=== PATIENT | female | born 1965 | race Asian ===

== ENCOUNTER 2020-09-06 04:00 | Inpatient (IN) | payer MEDICARE, MEDICAID ==
[~2020-09-06] VITALS: Ht 149.9 cm; Wt 55.3 kg
[~2020-09-06 04:00] MED LIST: AMLO-257 PO; AMYL1CAP63 PO; ATOR40TA28 PO; BENZ-70 PO; BUPR-93 PO; CARV6 PO; DIVA250T4 PO; DULO20CA27 PO
[2020-09-06 05:54] VITALS: BP 142/75
[2020-09-06] MEDS: LORazepam 2 MG TABLET PO PRN (07:00)
[2020-09-06 07:11] LABS: GLUCOMETER DEV NAME(LOC) BV2S.; GLUCOSE,POINT OF CARE 108 MG/DL (70-110)
[2020-09-06] MEDS ORDERED: BENZONATATE 100 MG CAPSULE PO PRN (08:00)
[2020-09-06] MEDS ORDERED: TraZODone HCL 100 MG TABLET PO PRN (08:00)
[2020-09-06 08:05] VITALS: BP 158/80
[2020-09-06] MEDS ORDERED: LamoTRIgine 100 MG TABLET PO SCH (09:00)
[2020-09-06] MEDS ORDERED: PNEUMOCOCCAL VACCINE POLYVALENT 0.5 ML VIAL [PPSV23] IM. ONE (09:15)
[2020-09-06] MEDS: AmLODIPine BESYLATE 5 MG TABLET PO SCH (09:26)
[2020-09-06] MEDS: OMEPRAZOLE 20 MG CAPSULE PO SCH (09:26)
[2020-09-06] MEDS: CARVEDILOL 12.5 MG TABLET PO SCH ×2 (09:26→18:27)
[2020-09-06] MEDS: FAMOTIDINE 20 MG TABLET PO SCH ×2 (09:26→18:27)
[2020-09-06] MEDS: LOSARTAN POTASSIUM 50 MG TABLET PO SCH (11:42)
[2020-09-06] MEDS: EZETIMIBE 10 MG TABLET PO SCH (11:46)
[2020-09-06] MEDS ORDERED: CloNIDine HCL 0.1 MG TABLET PO PRN (13:00)
[2020-09-06] MEDS ORDERED: LOPERAMIDE HCL 2 MG CAPSULE PO PRN (13:00)
[2020-09-06] MEDS ORDERED: MAG HYDROX/AL HYDROX/SIMETH ES 30 ML SUSPENSION UDCUP PO PRN (13:00)
[2020-09-06] MEDS ORDERED: GuaiFENesin/D-METHORPHAN [SUGAR-FREE] 200-20MG/10 ML SYRUP UDCUP PO PRN (13:00)
[2020-09-06] MEDS ORDERED: DOCUSATE SODIUM 100 MG CAPSULE PO PRN (13:00)
[2020-09-06] MEDS ORDERED: ALBUTEROL SULFATE HFA 90 MCG/PUFF 8 GM INHALER IH PRN (13:00)
[2020-09-06] MEDS ORDERED: NICOTINE 14 MG/24 HOUR PATCH TD PRN (13:00)
[2020-09-06] MEDS ORDERED: MAGNESIUM HYDROXIDE SUSPENSION 30 ML UDCUP PO PRN (13:00)
[2020-09-06] MEDS ORDERED: PETROLATUM,WHITE 28 GM JELLY TP PRN (13:00)
[2020-09-06] MEDS ORDERED: IBUPROFEN 400 MG TABLET PO PRN (13:00)
[2020-09-06 16:06] VITALS: BP 135/71
[2020-09-06 17:01] LABS: GLUCOMETER DEV NAME(LOC) BV2S.; GLUCOSE,POINT OF CARE 159 MG/DL (70-110)
[2020-09-06 17:01] LABS: GLUCOMETER DEV NAME(LOC) BV2S.; GLUCOSE,POINT OF CARE 226 MG/DL (70-110)
[2020-09-06] MEDS: DIVALPROEX SODIUM 250 MG DR TABLET PO SCH (18:27)
[2020-09-06] MEDS: ZOLPIDEM TARTRATE 10 MG TABLET PO PRN (20:50)
[2020-09-06] MEDS: LURASIDONE HCL 60 MG TABLET PO SCH (20:50)
[2020-09-06] MEDS: ATORVASTATIN CALCIUM 40 MG TABLET PO SCH (20:58)
[2020-09-06] MEDS ORDERED: LURASIDONE HCL 60 MG TABLET PO SCH (21:00)
[2020-09-06] MEDS ORDERED: GLUCAGON,HUMAN RECOMBINANT 1 MG VIAL IM PRN (21:45)
[2020-09-07 04:47] VITALS: BP 108/61
[2020-09-07 06:27] LABS: GLUCOMETER DEV NAME(LOC) BV2S.; GLUCOSE,POINT OF CARE 100 MG/DL (70-110)
[2020-09-07 08:06] LABS: BASOPHILS % (AUTO) 0.4 % (0.0-2.0); EOSINOPHILS % (AUTO) 1.9 % (1.0-6.0); HEMATOCRIT 36.8 % (36-46); HEMOGLOBIN 12.5 g/dL (12.0-16.0); LYMPHOCYTES # (AUTO) 2.4 K/uL (1.0-4.8); LYMPHOCYTES % (AUTO) 43.9 % (22.0-44.0); MEAN CORPUSCULAR HEMOGLOBIN 31.1 pg (26.0-34.0); MEAN CORPUSCULAR VOLUME 92 fL (80-100); MONOCYTES # (AUTO) 0.4 K/uL (0.1-1.0); MONOCYTES % (AUTO) 7.4 % (2.0-9.0); NEUTROPHILS # (AUTO) 2.5 K/uL (1.8-7.7); NEUTROPHILS % (AUTO) 46.4 % (40.0-70.0); PLATELET COUNT (AUTO) 247 K/uL (150-450); RED BLOOD CELL COUNT(AUTO) 4.03 MIL/uL (4.00-5.20); RED CELL DISTRIBUTION WIDTH 12.7 % (11.5-14.5)
[2020-09-07] MEDS: BuPROPion HCL XL 150 MG ER TABLET PO SCH (08:11)
[2020-09-07] MEDS: OMEPRAZOLE 20 MG CAPSULE PO SCH (08:11)
[2020-09-07] MEDS: LamoTRIgine 100 MG TABLET PO SCH (08:11)
[2020-09-07] MEDS: DIVALPROEX SODIUM 250 MG DR TABLET PO SCH (08:11)
[2020-09-07] MEDS: FAMOTIDINE 20 MG TABLET PO SCH ×2 (08:11→16:32)
[2020-09-07] MEDS: AmLODIPine BESYLATE 5 MG TABLET PO SCH (08:11)
[2020-09-07] MEDS: CARVEDILOL 12.5 MG TABLET PO SCH ×2 (08:11→16:32)
[2020-09-07 08:15] VITALS: BP 142/71
[2020-09-07] MEDS: DULoxetine HCL 20 MG CAPSULE PO SCH (08:21)
[2020-09-07] MEDS: EZETIMIBE 10 MG TABLET PO SCH (08:32)
[2020-09-07] MEDS: LOSARTAN POTASSIUM 50 MG TABLET PO SCH (08:32)
[2020-09-07] MEDS: LORazepam 2 MG TABLET PO PRN (08:32)
[2020-09-07 08:56] LABS: ALBUMIN 3.6 g/dL (3.4-5.0); BILIRUBIN,TOTAL 0.4 mg/dL (0.1-1.0); CALCIUM, TOTAL 9.3 mg/dL (8.8-10.5); CHOL/HDL RATIO 2.2 (3.9-5.7); CREATININE 1.98 mg/dL (0.60-1.30); FREE T4 (FREE THYROXINE) 0.94 ng/dL (0.76-1.46); POTASSIUM 4.1 mmol/L (3.5-5.1); THYROID STIMULATING HORMONE 0.7 uIU/mL (0.36-3.74); TOTAL PROTEIN, SERUM 7.6 g/dL (6.4-8.2)
[2020-09-07 11:52] LABS: GLUCOMETER DEV NAME(LOC) BV2S.; GLUCOSE,POINT OF CARE 134 MG/DL (70-110)
[2020-09-07 16:02] VITALS: BP 126/67
[2020-09-07] MEDS: DIVALPROEX SODIUM 500 MG DR TABLET PO SCH (16:32)
[2020-09-07] MEDS: INSULIN LISPRO 100 UNITS/ML SQ PRN ×2 (16:40→20:15)
[2020-09-07 16:43] LABS: GLUCOMETER DEV NAME(LOC) BV2S.; GLUCOSE,POINT OF CARE 208 MG/DL (70-110)
[2020-09-07] MEDS: ATORVASTATIN CALCIUM 40 MG TABLET PO SCH (20:12)
[2020-09-07] MEDS: LURASIDONE HCL 60 MG TABLET PO SCH (20:12)
[2020-09-07] MEDS: AMYLASE/LIPASE/PROTEASE 60/12/38 MU DR CAPSULE PO SCH (20:16)
[2020-09-07] MEDS: ZOLPIDEM TARTRATE 10 MG TABLET PO PRN (20:49)
[2020-09-07 21:02] LABS: GLUCOMETER DEV NAME(LOC) BV2S.; GLUCOSE,POINT OF CARE 181 MG/DL (70-110)
[2020-09-08 05:02] VITALS: BP 113/60
[2020-09-08] MEDS: AMYLASE/LIPASE/PROTEASE 60/12/38 MU DR CAPSULE PO SCH ×3 (06:41→16:14)
[2020-09-08 06:50] LABS: GLUCOMETER DEV NAME(LOC) BV2S.; GLUCOSE,POINT OF CARE 122 MG/DL (70-110)
[2020-09-08 08:00] VITALS: BP 131/65
[2020-09-08] MEDS: LamoTRIgine 100 MG TABLET PO SCH (08:41)
[2020-09-08] MEDS: DIVALPROEX SODIUM 500 MG DR TABLET PO SCH ×2 (08:41→16:13)
[2020-09-08] MEDS: EZETIMIBE 10 MG TABLET PO SCH (08:41)
[2020-09-08] MEDS: BuPROPion HCL XL 150 MG ER TABLET PO SCH (08:41)
[2020-09-08] MEDS: CARVEDILOL 12.5 MG TABLET PO SCH ×2 (08:41→16:13)
[2020-09-08] MEDS: LOSARTAN POTASSIUM 50 MG TABLET PO SCH (08:41)
[2020-09-08] MEDS: OMEPRAZOLE 20 MG CAPSULE PO SCH (08:41)
[2020-09-08] MEDS: AmLODIPine BESYLATE 5 MG TABLET PO SCH (08:42)
[2020-09-08] MEDS: FAMOTIDINE 20 MG TABLET PO SCH ×2 (08:42→16:13)
[2020-09-08] MEDS: DULoxetine HCL 20 MG CAPSULE PO SCH ×2 (08:43→12:15)
[2020-09-08] MEDS: LORazepam 2 MG TABLET PO PRN ×2 (08:52→16:25)
[2020-09-08] MEDS: INSULIN LISPRO 100 UNITS/ML SQ PRN ×2 (11:01→17:00)
[2020-09-08 12:53] LABS: GLUCOMETER DEV NAME(LOC) BV2S.; GLUCOSE,POINT OF CARE 159 MG/DL (70-110)
[2020-09-08 16:09] VITALS: BP 115/60
[2020-09-08 16:36] LABS: GLUCOMETER DEV NAME(LOC) BV2S.; GLUCOSE,POINT OF CARE 205 MG/DL (70-110)
[2020-09-08] MEDS: ACETAMINOPHEN 325 MG TABLET PO PRN (16:43)
[2020-09-08] MEDS: ATORVASTATIN CALCIUM 40 MG TABLET PO SCH (19:55)
[2020-09-08] MEDS: LURASIDONE HCL 60 MG TABLET PO SCH (19:55)
[2020-09-08 20:06] LABS: GLUCOMETER DEV NAME(LOC) BV2S.; GLUCOSE,POINT OF CARE 108 MG/DL (70-110)
[2020-09-08] MEDS: ZOLPIDEM TARTRATE 10 MG TABLET PO PRN (20:31)
[2020-09-09 05:24] VITALS: BP 138/60
[2020-09-09] MEDS: AMYLASE/LIPASE/PROTEASE 60/12/38 MU DR CAPSULE PO SCH ×3 (06:23→16:05)
[2020-09-09 06:40] LABS: GLUCOMETER DEV NAME(LOC) BV2S.; GLUCOSE,POINT OF CARE 93 MG/DL (70-110)
[2020-09-09 08:00] VITALS: BP 160/75
[2020-09-09] MEDS: DULoxetine HCL 20 MG CAPSULE PO SCH (08:01)
[2020-09-09] MEDS: EZETIMIBE 10 MG TABLET PO SCH (08:01)
[2020-09-09] MEDS: FAMOTIDINE 20 MG TABLET PO SCH ×2 (08:01→16:05)
[2020-09-09] MEDS: CARVEDILOL 12.5 MG TABLET PO SCH ×2 (08:01→16:05)
[2020-09-09] MEDS: OMEPRAZOLE 20 MG CAPSULE PO SCH (08:01)
[2020-09-09] MEDS: DIVALPROEX SODIUM 500 MG DR TABLET PO SCH ×2 (08:01→16:05)
[2020-09-09] MEDS: AmLODIPine BESYLATE 5 MG TABLET PO SCH (08:01)
[2020-09-09] MEDS: BuPROPion HCL XL 150 MG ER TABLET PO SCH (08:01)
[2020-09-09] MEDS: LOSARTAN POTASSIUM 50 MG TABLET PO SCH (08:02)
[2020-09-09] MEDS: LORazepam 2 MG TABLET PO PRN ×2 (08:02→16:05)
[2020-09-09] MEDS: LamoTRIgine 100 MG TABLET PO SCH (08:02)
[2020-09-09 09:21] VITALS: BP 134/64
[2020-09-09] MEDS: INSULIN LISPRO 100 UNITS/ML SQ PRN ×3 (10:57→20:09)
[2020-09-09 11:13] LABS: GLUCOMETER DEV NAME(LOC) BV2S.; GLUCOSE,POINT OF CARE 199 MG/DL (70-110)
[2020-09-09 16:08] VITALS: BP 149/83
[2020-09-09 16:24] LABS: GLUCOMETER DEV NAME(LOC) BV2S.; GLUCOSE,POINT OF CARE 143 MG/DL (70-110)
[2020-09-09 16:32] VITALS: BP 142/79
[2020-09-09] MEDS: ATORVASTATIN CALCIUM 40 MG TABLET PO SCH (20:01)
[2020-09-09] MEDS: LURASIDONE HCL 60 MG TABLET PO SCH (20:01)
[2020-09-09] MEDS: ZOLPIDEM TARTRATE 10 MG TABLET PO PRN (20:07)
[2020-09-09 20:58] LABS: GLUCOMETER DEV NAME(LOC) BV2S.; GLUCOSE,POINT OF CARE 146 MG/DL (70-110)
[2020-09-10 04:26] VITALS: BP 123/70
[2020-09-10 06:18] VITALS: BP 138/54
[2020-09-10] MEDS: AMYLASE/LIPASE/PROTEASE 60/12/38 MU DR CAPSULE PO SCH ×3 (06:30→16:20)
[2020-09-10 06:41] LABS: GLUCOMETER DEV NAME(LOC) BV2S.; GLUCOSE,POINT OF CARE 85 MG/DL (70-110)
[2020-09-10 08:12] VITALS: BP 144/66
[2020-09-10] MEDS: LORazepam 2 MG TABLET PO PRN ×2 (08:12→12:13)
[2020-09-10] MEDS: AmLODIPine BESYLATE 5 MG TABLET PO SCH (08:13)
[2020-09-10] MEDS: DULoxetine HCL 20 MG CAPSULE PO SCH (08:13)
[2020-09-10] MEDS: FAMOTIDINE 20 MG TABLET PO SCH ×2 (08:13→16:20)
[2020-09-10] MEDS: LamoTRIgine 100 MG TABLET PO SCH (08:13)
[2020-09-10] MEDS: OMEPRAZOLE 20 MG CAPSULE PO SCH (08:13)
[2020-09-10] MEDS: CARVEDILOL 12.5 MG TABLET PO SCH ×2 (08:13→16:19)
[2020-09-10] MEDS: DIVALPROEX SODIUM 500 MG DR TABLET PO SCH ×2 (08:13→16:19)
[2020-09-10] MEDS: BuPROPion HCL XL 150 MG ER TABLET PO SCH (08:13)
[2020-09-10] MEDS: EZETIMIBE 10 MG TABLET PO SCH (08:17)
[2020-09-10] MEDS: LOSARTAN POTASSIUM 50 MG TABLET PO SCH (08:17)
[2020-09-10] MEDS: INSULIN LISPRO 100 UNITS/ML SQ PRN ×2 (11:51→17:02)
[2020-09-10 11:52] LABS: GLUCOMETER DEV NAME(LOC) BV2S.; GLUCOSE,POINT OF CARE 158 MG/DL (70-110)
[2020-09-10 16:03] VITALS: BP 147/72
[2020-09-10 16:37] LABS: GLUCOMETER DEV NAME(LOC) BV2S.; GLUCOSE,POINT OF CARE 175 MG/DL (70-110)
[2020-09-10] MEDS: ATORVASTATIN CALCIUM 40 MG TABLET PO SCH (20:04)
[2020-09-10] MEDS: LURASIDONE HCL 60 MG TABLET PO SCH (20:04)
[2020-09-10 20:18] LABS: GLUCOMETER DEV NAME(LOC) BV2S.; GLUCOSE,POINT OF CARE 167 MG/DL (70-110)
[2020-09-10] MEDS: ZOLPIDEM TARTRATE 10 MG TABLET PO PRN (21:01)
[2020-09-11 06:20] VITALS: BP 126/68
[2020-09-11] MEDS: AMYLASE/LIPASE/PROTEASE 60/12/38 MU DR CAPSULE PO SCH ×3 (06:32→16:06)
[2020-09-11 06:36] LABS: GLUCOMETER DEV NAME(LOC) BV2S.; GLUCOSE,POINT OF CARE 90 MG/DL (70-110)
[2020-09-11 07:36] LABS: COVID AG,FIA SOURCE NASOPHARYNGEAL
[2020-09-11 08:36] VITALS: BP 121/72
[2020-09-11] MEDS: OMEPRAZOLE 20 MG CAPSULE PO SCH (09:03)
[2020-09-11] MEDS: BuPROPion HCL XL 150 MG ER TABLET PO SCH (09:03)
[2020-09-11] MEDS: EZETIMIBE 10 MG TABLET PO SCH (09:03)
[2020-09-11] MEDS: DIVALPROEX SODIUM 500 MG DR TABLET PO SCH ×2 (09:03→16:06)
[2020-09-11] MEDS: LOSARTAN POTASSIUM 50 MG TABLET PO SCH (09:03)
[2020-09-11] MEDS: LamoTRIgine 100 MG TABLET PO SCH (09:03)
[2020-09-11] MEDS: DULoxetine HCL 20 MG CAPSULE PO SCH (09:04)
[2020-09-11] MEDS: FAMOTIDINE 20 MG TABLET PO SCH ×2 (09:04→16:06)
[2020-09-11] MEDS: AmLODIPine BESYLATE 5 MG TABLET PO SCH (09:04)
[2020-09-11] MEDS: CARVEDILOL 12.5 MG TABLET PO SCH ×2 (09:05→16:06)
[2020-09-11] MEDS: LORazepam 2 MG TABLET PO PRN (09:07)
[2020-09-11] MEDS: INSULIN LISPRO 100 UNITS/ML SQ PRN ×2 (11:36→20:16)
[2020-09-11 11:42] LABS: GLUCOMETER DEV NAME(LOC) BV2S.; GLUCOSE,POINT OF CARE 222 MG/DL (70-110)
[2020-09-11 16:11] VITALS: BP 140/69
[2020-09-11 16:27] LABS: GLUCOMETER DEV NAME(LOC) BV2S.; GLUCOSE,POINT OF CARE 112 MG/DL (70-110)
[2020-09-11] MEDS: ACETAMINOPHEN 325 MG TABLET PO PRN (20:02)
[2020-09-11] MEDS: ATORVASTATIN CALCIUM 40 MG TABLET PO SCH (20:02)
[2020-09-11] MEDS: LURASIDONE HCL 60 MG TABLET PO SCH (20:02)
[2020-09-11] MEDS: ZOLPIDEM TARTRATE 10 MG TABLET PO PRN (20:02)
[2020-09-11 20:18] LABS: GLUCOMETER DEV NAME(LOC) BV2S.; GLUCOSE,POINT OF CARE 225 MG/DL (70-110)
[2020-09-12 00:48] VITALS: BP 132/70
[2020-09-12] MEDS: AMYLASE/LIPASE/PROTEASE 60/12/38 MU DR CAPSULE PO SCH ×3 (06:46→16:17)
[2020-09-12 06:53] LABS: GLUCOMETER DEV NAME(LOC) BV2S.; GLUCOSE,POINT OF CARE 109 MG/DL (70-110)
[2020-09-12 08:37] VITALS: BP 114/68
[2020-09-12] MEDS: FAMOTIDINE 20 MG TABLET PO SCH ×2 (09:35→16:18)
[2020-09-12] MEDS: DULoxetine HCL 20 MG CAPSULE PO SCH (09:35)
[2020-09-12] MEDS: LamoTRIgine 100 MG TABLET PO SCH (09:36)
[2020-09-12] MEDS: CARVEDILOL 12.5 MG TABLET PO SCH ×2 (09:36→16:18)
[2020-09-12] MEDS: BuPROPion HCL XL 150 MG ER TABLET PO SCH (09:36)
[2020-09-12] MEDS: AmLODIPine BESYLATE 5 MG TABLET PO SCH (09:36)
[2020-09-12] MEDS: LOSARTAN POTASSIUM 50 MG TABLET PO SCH (09:36)
[2020-09-12] MEDS: EZETIMIBE 10 MG TABLET PO SCH (09:36)
[2020-09-12] MEDS: DIVALPROEX SODIUM 500 MG DR TABLET PO SCH ×2 (09:36→16:17)
[2020-09-12] MEDS: OMEPRAZOLE 20 MG CAPSULE PO SCH (09:36)
[2020-09-12 11:56] LABS: GLUCOMETER DEV NAME(LOC) BV2S.; GLUCOSE,POINT OF CARE 183 MG/DL (70-110)
[2020-09-12] MEDS: INSULIN LISPRO 100 UNITS/ML SQ PRN ×3 (11:59→21:19)
[2020-09-12 16:07] VITALS: BP 137/64
[2020-09-12] MEDS: LORazepam 2 MG TABLET PO PRN (16:20)
[2020-09-12 16:35] LABS: GLUCOMETER DEV NAME(LOC) BV2S.; GLUCOSE,POINT OF CARE 141 MG/DL (70-110)
[2020-09-12] MEDS: ATORVASTATIN CALCIUM 40 MG TABLET PO SCH (19:56)
[2020-09-12] MEDS: LURASIDONE HCL 60 MG TABLET PO SCH (19:56)
[2020-09-12 20:05] LABS: GLUCOMETER DEV NAME(LOC) BV2S.; GLUCOSE,POINT OF CARE 175 MG/DL (70-110)
[2020-09-12] MEDS: ZOLPIDEM TARTRATE 10 MG TABLET PO PRN (20:15)
[2020-09-13 00:39] VITALS: BP 119/62
[2020-09-13 06:29] LABS: GLUCOMETER DEV NAME(LOC) BV2S.; GLUCOSE,POINT OF CARE 109 MG/DL (70-110)
[2020-09-13] MEDS: AMYLASE/LIPASE/PROTEASE 60/12/38 MU DR CAPSULE PO SCH ×3 (06:58→17:04)
[2020-09-13] MEDS: BuPROPion HCL XL 150 MG ER TABLET PO SCH (08:02)
[2020-09-13] MEDS: DIVALPROEX SODIUM 500 MG DR TABLET PO SCH ×2 (08:02→15:57)
[2020-09-13] MEDS: OMEPRAZOLE 20 MG CAPSULE PO SCH (08:02)
[2020-09-13] MEDS: FAMOTIDINE 20 MG TABLET PO SCH ×2 (08:03→15:58)
[2020-09-13] MEDS: LamoTRIgine 100 MG TABLET PO SCH (08:04)
[2020-09-13] MEDS: DULoxetine HCL 20 MG CAPSULE PO SCH (08:04)
[2020-09-13] MEDS: EZETIMIBE 10 MG TABLET PO SCH (08:04)
[2020-09-13 08:21] VITALS: BP 134/65
[2020-09-13] MEDS: CARVEDILOL 12.5 MG TABLET PO SCH ×2 (09:00→15:57)
[2020-09-13] MEDS: AmLODIPine BESYLATE 5 MG TABLET PO SCH (09:00)
[2020-09-13] MEDS: LOSARTAN POTASSIUM 50 MG TABLET PO SCH (09:00)
[2020-09-13 11:58] LABS: GLUCOMETER DEV NAME(LOC) BV2S.; GLUCOSE,POINT OF CARE 174 MG/DL (70-110)
[2020-09-13] MEDS: INSULIN LISPRO 100 UNITS/ML SQ PRN ×3 (12:05→21:55)
[2020-09-13] MEDS: LORazepam 2 MG TABLET PO PRN (15:51)
[2020-09-13] MEDS: ACETAMINOPHEN 325 MG TABLET PO PRN (15:52)
[2020-09-13 16:11] VITALS: BP 143/86
[2020-09-13 16:21] LABS: GLUCOMETER DEV NAME(LOC) BV2S.; GLUCOSE,POINT OF CARE 164 MG/DL (70-110)
[2020-09-13] MEDS: LURASIDONE HCL 60 MG TABLET PO SCH (20:03)
[2020-09-13] MEDS: ZOLPIDEM TARTRATE 10 MG TABLET PO PRN (20:03)
[2020-09-13] MEDS: ATORVASTATIN CALCIUM 40 MG TABLET PO SCH (20:03)
[2020-09-13 20:13] LABS: GLUCOMETER DEV NAME(LOC) BV2S.; GLUCOSE,POINT OF CARE 159 MG/DL (70-110)
[2020-09-14 05:40] VITALS: BP 128/68
[2020-09-14 06:28] LABS: GLUCOMETER DEV NAME(LOC) BV2S.; GLUCOSE,POINT OF CARE 94 MG/DL (70-110)
[2020-09-14] MEDS: AMYLASE/LIPASE/PROTEASE 60/12/38 MU DR CAPSULE PO SCH ×3 (06:47→16:12)
[2020-09-14] MEDS: EZETIMIBE 10 MG TABLET PO SCH (08:41)
[2020-09-14] MEDS: AmLODIPine BESYLATE 5 MG TABLET PO SCH (08:41)
[2020-09-14] MEDS: DULoxetine HCL 20 MG CAPSULE PO SCH (08:41)
[2020-09-14] MEDS: BuPROPion HCL XL 150 MG ER TABLET PO SCH (08:41)
[2020-09-14] MEDS: CARVEDILOL 12.5 MG TABLET PO SCH ×2 (08:41→16:12)
[2020-09-14] MEDS: OMEPRAZOLE 20 MG CAPSULE PO SCH (08:41)
[2020-09-14] MEDS: LOSARTAN POTASSIUM 50 MG TABLET PO SCH (08:41)
[2020-09-14] MEDS: FAMOTIDINE 20 MG TABLET PO SCH ×2 (08:42→16:12)
[2020-09-14] MEDS: DIVALPROEX SODIUM 500 MG DR TABLET PO SCH ×2 (08:42→16:12)
[2020-09-14] MEDS: LamoTRIgine 100 MG TABLET PO SCH (08:42)
[2020-09-14 08:58] VITALS: BP 129/76
[2020-09-14] MEDS: LORazepam 2 MG TABLET PO PRN ×2 (11:00→17:56)
[2020-09-14 11:08] LABS: GLUCOMETER DEV NAME(LOC) BV2S.; GLUCOSE,POINT OF CARE 167 MG/DL (70-110)
[2020-09-14] MEDS: INSULIN LISPRO 100 UNITS/ML SQ PRN ×2 (11:47→17:00)
[2020-09-14 16:02] VITALS: BP 133/69
[2020-09-14] MEDS: ACETAMINOPHEN 325 MG TABLET PO PRN (16:20)
[2020-09-14 16:29] LABS: GLUCOMETER DEV NAME(LOC) BV2S.; GLUCOSE,POINT OF CARE 218 MG/DL (70-110)
[2020-09-14] MEDS: ZOLPIDEM TARTRATE 10 MG TABLET PO PRN (20:10)
[2020-09-14 20:15] LABS: GLUCOMETER DEV NAME(LOC) BV2S.; GLUCOSE,POINT OF CARE 96 MG/DL (70-110)
[2020-09-14] MEDS: ATORVASTATIN CALCIUM 40 MG TABLET PO SCH (21:15)
[2020-09-14] MEDS: LURASIDONE HCL 60 MG TABLET PO SCH (21:15)
[2020-09-15 05:49] VITALS: BP 123/64
[2020-09-15 06:30] LABS: GLUCOMETER DEV NAME(LOC) BV2S.; GLUCOSE,POINT OF CARE 97 MG/DL (70-110)
[2020-09-15] MEDS: AMYLASE/LIPASE/PROTEASE 60/12/38 MU DR CAPSULE PO SCH ×3 (06:46→16:24)
[2020-09-15 07:56] LABS: COVID AG,FIA SOURCE NASOPHARYNGEAL
[2020-09-15 08:44] VITALS: BP 114/84
[2020-09-15] MEDS: OMEPRAZOLE 20 MG CAPSULE PO SCH (08:48)
[2020-09-15] MEDS: DIVALPROEX SODIUM 500 MG DR TABLET PO SCH ×2 (08:49→16:24)
[2020-09-15] MEDS: LamoTRIgine 100 MG TABLET PO SCH (08:49)
[2020-09-15] MEDS: BuPROPion HCL XL 150 MG ER TABLET PO SCH (08:49)
[2020-09-15] MEDS: CARVEDILOL 12.5 MG TABLET PO SCH ×2 (08:50→16:24)
[2020-09-15] MEDS: FAMOTIDINE 20 MG TABLET PO SCH ×2 (08:51→16:24)
[2020-09-15] MEDS: EZETIMIBE 10 MG TABLET PO SCH (08:53)
[2020-09-15] MEDS: LOSARTAN POTASSIUM 50 MG TABLET PO SCH (08:53)
[2020-09-15] MEDS: AmLODIPine BESYLATE 5 MG TABLET PO SCH (08:55)
[2020-09-15] MEDS: DULoxetine HCL 20 MG CAPSULE PO SCH (08:55)
[2020-09-15] MEDS: INSULIN LISPRO 100 UNITS/ML SQ PRN ×3 (11:39→20:40)
[2020-09-15 11:46] LABS: GLUCOMETER DEV NAME(LOC) BV2S.; GLUCOSE,POINT OF CARE 154 MG/DL (70-110)
[2020-09-15] MEDS: LORazepam 2 MG TABLET PO PRN ×2 (12:59→21:31)
[2020-09-15 16:11] VITALS: BP 141/79
[2020-09-15 16:30] LABS: GLUCOMETER DEV NAME(LOC) BV2S.; GLUCOSE,POINT OF CARE 174 MG/DL (70-110)
[2020-09-15] MEDS: ATORVASTATIN CALCIUM 40 MG TABLET PO SCH (20:02)
[2020-09-15] MEDS: ZOLPIDEM TARTRATE 10 MG TABLET PO PRN (20:02)
[2020-09-15] MEDS: LURASIDONE HCL 60 MG TABLET PO SCH (20:02)
[2020-09-15 20:18] LABS: GLUCOMETER DEV NAME(LOC) BV2S.; GLUCOSE,POINT OF CARE 189 MG/DL (70-110)
[2020-09-16 00:14] VITALS: BP 148/76
[2020-09-16 06:25] LABS: GLUCOMETER DEV NAME(LOC) BV2S.; GLUCOSE,POINT OF CARE 108 MG/DL (70-110)
[2020-09-16] MEDS: AMYLASE/LIPASE/PROTEASE 60/12/38 MU DR CAPSULE PO SCH ×3 (06:47→16:00)
[2020-09-16] MEDS: LamoTRIgine 100 MG TABLET PO SCH (08:41)
[2020-09-16] MEDS: FAMOTIDINE 20 MG TABLET PO SCH ×2 (08:41→16:00)
[2020-09-16] MEDS: AmLODIPine BESYLATE 5 MG TABLET PO SCH (08:42)
[2020-09-16] MEDS: DULoxetine HCL 20 MG CAPSULE PO SCH (08:42)
[2020-09-16] MEDS: EZETIMIBE 10 MG TABLET PO SCH (08:42)
[2020-09-16] MEDS: CARVEDILOL 12.5 MG TABLET PO SCH ×2 (08:42→16:00)
[2020-09-16] MEDS: LOSARTAN POTASSIUM 50 MG TABLET PO SCH (08:42)
[2020-09-16] MEDS: BuPROPion HCL XL 150 MG ER TABLET PO SCH (08:42)
[2020-09-16] MEDS: DIVALPROEX SODIUM 500 MG DR TABLET PO SCH ×2 (08:42→16:00)
[2020-09-16] MEDS: OMEPRAZOLE 20 MG CAPSULE PO SCH (08:42)
[2020-09-16 08:53] VITALS: BP 125/61
[2020-09-16] MEDS: INSULIN LISPRO 100 UNITS/ML SQ PRN ×2 (11:46→20:53)
[2020-09-16] MEDS: LORazepam 2 MG TABLET PO PRN ×2 (16:00→21:25)
[2020-09-16] MEDS: ACETAMINOPHEN 325 MG TABLET PO PRN (16:00)
[2020-09-16 16:11] VITALS: BP 138/77
[2020-09-16 16:11] LABS: GLUCOMETER DEV NAME(LOC) BV2S.; GLUCOSE,POINT OF CARE 150 MG/DL (70-110)
[2020-09-16 16:11] LABS: GLUCOMETER DEV NAME(LOC) BV2S.; GLUCOSE,POINT OF CARE 137 MG/DL (70-110)
[2020-09-16 20:26] LABS: GLUCOMETER DEV NAME(LOC) BV2S.; GLUCOSE,POINT OF CARE 195 MG/DL (70-110)
[2020-09-16] MEDS ORDERED: ZOLPIDEM TARTRATE 10 MG TABLET PO PRN (20:30)
[2020-09-16] MEDS: LURASIDONE HCL 60 MG TABLET PO SCH (20:33)
[2020-09-16] MEDS: ATORVASTATIN CALCIUM 40 MG TABLET PO SCH (20:33)
[2020-09-17 00:13] VITALS: BP 140/74
[2020-09-17 06:13] LABS: GLUCOMETER DEV NAME(LOC) BV2S.; GLUCOSE,POINT OF CARE 99 MG/DL (70-110)
[2020-09-17] MEDS: AMYLASE/LIPASE/PROTEASE 60/12/38 MU DR CAPSULE PO SCH ×2 (06:54→11:06)
[2020-09-17] MEDS: EZETIMIBE 10 MG TABLET PO SCH (08:08)
[2020-09-17] MEDS: AmLODIPine BESYLATE 5 MG TABLET PO SCH (08:08)
[2020-09-17] MEDS: CARVEDILOL 12.5 MG TABLET PO SCH (08:08)
[2020-09-17] MEDS: DIVALPROEX SODIUM 500 MG DR TABLET PO SCH (08:08)
[2020-09-17] MEDS: OMEPRAZOLE 20 MG CAPSULE PO SCH (08:08)
[2020-09-17] MEDS: LamoTRIgine 100 MG TABLET PO SCH (08:08)
[2020-09-17] MEDS: FAMOTIDINE 20 MG TABLET PO SCH (08:08)
[2020-09-17] MEDS: DULoxetine HCL 20 MG CAPSULE PO SCH (08:08)
[2020-09-17] MEDS: BuPROPion HCL XL 150 MG ER TABLET PO SCH (08:08)
[2020-09-17] MEDS: LOSARTAN POTASSIUM 50 MG TABLET PO SCH (08:09)
[2020-09-17 08:11] VITALS: BP 164/76
[2020-09-17 08:15] LABS: CREATININE 1.14 mg/dL (0.60-1.30)
[2020-09-17] MEDS: INSULIN LISPRO 100 UNITS/ML SQ PRN (11:09)
[2020-09-17 11:14] LABS: GLUCOMETER DEV NAME(LOC) BV2S.; GLUCOSE,POINT OF CARE 158 MG/DL (70-110)
[2020-09-17] MEDS ORDERED: LURA60TA PO (15:04)
[2020-09-17] MEDS ORDERED: DIVA-112 PO (15:04)
[2020-09-17] MEDS ORDERED: BUPR-93 PO (15:05)
[2020-09-17] MEDS ORDERED: LAMO100 PO (15:05)
[2020-09-17] MEDS ORDERED: CARV12 PO (15:06)
[2020-09-17] MEDS ORDERED: FAMO20 PO (15:07)
[2020-09-17] MEDS ORDERED: OMEP20 PO (15:07)
[2020-09-17] MEDS ORDERED: LOSA50TA37 PO (15:08)
[2020-09-17] MEDS ORDERED: EZET10TA57 PO (15:13)
[2020-09-17 16:04] VITALS: BP 161/73
== END 2020-09-17 16:10 | disposition home or self-care (01) | DRG 885 ==
LOC: B2S 04:00
PROVIDERS: ADMIT Psychiatry & Neurology Child & Adolescent Psychiatry; ATTEND Psychiatry & Neurology Child & Adolescent Psychiatry
DX: F31.5 Bipolar disorder, current episode depressed, severe, with psychotic features (principal); N17.9 Acute kidney failure, unspecified; R45.851 Suicidal ideations; K86.1 Other chronic pancreatitis; Z20.822 Contact with and (suspected) exposure to COVID-19; E78.5 Hyperlipidemia, unspecified; E11.9 Type 2 diabetes mellitus without complications; I10 Essential (primary) hypertension; F41.9 Anxiety disorder, unspecified; K21.9 Gastro-esophageal reflux disease without esophagitis; Z59.0 Homelessness
CPT/HCPCS: 80048; 80053; 80061; 80164; 82962; 83036; 84439; 84443; 85025; 87426; A9575